=== PATIENT | female | born 1945 | race Caucasian/White ===

== ENCOUNTER → 2016-05-27 07:44 | Outpatient (CLI) | payer MEDICARE ==
[2015-06-12 08:00] VITALS: BMI 24.1
[~2016-05-27 07:44] MED LIST: BENICAR40 MG PO; HYDROCODONE-APA1 TAB PO; NORVASC10 MG PO; TOPROL XL100 MG PO
== END | disposition home or self-care (01) ==
LOC: D.NM 05-25 09:30 → D.US 07:44 → D.NM 09:00
DX: R93.2 Abnormal findings on diagnostic imaging of liver and biliary tract (principal); R10.10 Upper abdominal pain, unspecified

== ENCOUNTER → 2016-06-03 10:24 | Outpatient (CLI) | payer MEDICARE ==
[2015-06-12 08:00] VITALS: BMI 24.1
[2016-06-03 11:25] LABS: BASOPHILS 0.2 % (0.0-2.0); EOSINOPHILS 2.2 % (0-7); HEMATOCRIT 41.4 % (36.0-48.0); HEMOGLOBIN 13.8 g/dL (12-16); IMMATURE GRANULOCYTES 0.2 % (0-5); MCH 34.7 pg (26.0-34.0); MCHC 33.3 g/dL (31.0-37.0); MEAN PLATELET VOLUME 10.5 fL (7.4-10.4); MONOCYTES 11.2 % (2-11); NEUTROPHILS 59.2 % (40-80); PLATELET COUNT 157 10x3/uL (130-400); RBC 3.98 10x6/uL (4.00-5.40); RDW 13.6 % (11.5-14.5); WBC 9.2 10x3/uL (4.8-10.8)
[2016-06-03 11:44] LABS: ALBUMIN 3.2 g/dL (3.4-5.0); ANION GAP 11.1 mmol/L (8-16); BILIRUBIN - TOTAL 1.19 mg/dL (0.2-1.3); CALCIUM 8.8 mg/dL (8.5-10.1); CARBON DIOXIDE 26.8 mmol/L (21.0-32.0); POTASSIUM - SERUM 3.9 mmol/L (3.5-5.1); PROTEIN - SERUM 7.9 g/dL (6.4-8.2)
== END | disposition home or self-care (01) ==
LOC: D.LAB 10:24
PROVIDERS: Surgery
DX: R10.9 Unspecified abdominal pain (principal); R79.89 Other specified abnormal findings of blood chemistry; R11.2 Nausea with vomiting, unspecified; R93.2 Abnormal findings on diagnostic imaging of liver and biliary tract; R93.3 Abnormal findings on diagnostic imaging of other parts of digestive tract

== ENCOUNTER → 2016-06-22 11:24 | Outpatient (CLI) | payer MEDICARE ==
[2015-06-12 08:00] VITALS: BMI 24.1
[2016-06-23 12:17] LABS: FOLATE (FOLIC ACID) - SERUM 5.7 ng/mL (>3.0)
== END | disposition home or self-care (01) ==
LOC: D.LAB 11:24
PROVIDERS: Internal Medicine Gastroenterology
DX: R63.4 Abnormal weight loss (principal)

== ENCOUNTER 2016-07-14 07:40 | Day surgery (SDC) | payer MEDICARE ==
[~2016-07-14] VITALS: Ht 165.1 cm; Wt 63.0 kg
--- NOTE | ~2016-07-14 | OP ---
PATIENT NAME: ASHLEY SARABIA MEDICAL RECORD: [id number] :45 LOCATION:D.BEE ADMISSION DATE: SURGEON: QUINTEN ELLIS MD DATE OF OPERATION: 07/14/2016 PREOPERATIVE DIAGNOSES: 1. Biliary dyskinesia. 2. Hypertension. 3. Coronary artery disease. POSTOPERATIVE DIAGNOSES: 1. Biliary dyskinesia. 2. Hypertension. 3. Coronary artery disease. 4. Liver cirrhosis. PROCEDURE: 1. Laparoscopic cholecystectomy. 2. Liver biopsy. SURGEON: Quinten Ellis MD REPORT OF PROCEDURE: The patient's abdomen was prepped and draped in sterile fashion. A cutdown was made on the superior aspect of the umbilicus, 0 Vicryls were placed on the fascia bilaterally and the fascia was incised with 15-blade. I then bluntly entered the peritoneal cavity and placed a 12-mm Shay port. Under direct visualization, a 5 mm trocar was placed in the epigastrium and 2 more 5-mm trocars were placed in the right subcostal region. The liver was noted to have a significant amount of cirrhotic changes to it. It was very firm with a cobblestone appearance and was mildly enlarged. The gallbladder had some inflammatory attachments to the surrounding tissues including the patient's small bowel. Careful dissection was performed of the small bowel off of the gallbladder, dissected down near the cystic duct. It was difficult to make out a lot of the tissues because there was so much redundancy and scar tissue, so I did a dome-down approach of the gallbladder, taking in off of the liver bed and eventually dissecting it free until we only could see the cystic artery and cystic duct. These were clipped proximally and distally and ligated in standard fashion. The liver bed was treated with electrocautery and then was treated with Beth t. We took a liver biopsies from the right lobe of the liver using a Jerson-Cut liver biopsy device. The specimens were sent off for permanent. Any bleeding from these biopsy sites was treated with electrocautery and discontinued. We irrigated out the abdomen and assured there was no sign of any bleeding or bile leakage. At this point, the ports and insufflation were then removed and the gallbladder was taken out through the umbilicus. The umbilical fascia was closed with interrupted 0 Vicryls times 3. The wounds were irrigated out with normal saline and infused with 10 mL of 0.25% Marcaine with epinephrine. The skin incisions were all closed with subcutaneous 5-0 Monocryl and dressed appropriately. COMPLICATIONS: None. CONDITION: Stable. ANESTHESIA: General endotracheal and local. OPERATIVE REPORT [id number] ASHLEY SARABIA BLOOD LOSS: 30 mL. TRANSINT:[id number] Voice Confirmation ID: [id number] DOCUMENT ID: [id number] QUINTEN ELLIS MD CC: JAYSON DUMONT MD and GAVIN WALLER MD [id number] DICTATION DATE: 07/14/16 132 MANAGER CLINICAL PHARMACY: 07/14/162149 [facility] [place] 07/14/16 [place] [address] [place] [address]
[~2016-07-14 07:40] MED LIST changes: +ARICEPT5 MG PO; +COZAAR100 MG PO; +METOPROLOL TAR100 M1 PO; -TOPROL XL100 MG PO; +ZOFRAN8 MG PO
[2016-07-14 08:34] LABS: BASOPHILS 0.6 % (0-2); EOSINOPHILS 3.8 % (0-7); HEMATOCRIT 39.6 % (36.0-48.0); HEMOGLOBIN 13.2 g/dL (12-16); IMMATURE GRANULOCYTES 0.1 % (0-5); LYMPHOCYTES 35.3 % (15-50); MCH 35.9 pg (26.0-34.0); MCHC 33.3 g/dL (31.0-37.0); MCV 107.6 fL (80.0-100.0); MEAN PLATELET VOLUME 9.5 fL (7.4-10.4); MONOCYTES 11.8 % (2-11); NEUTROPHILS 48.4 % (40-80); PLATELET COUNT 134 10x3/uL (130-400); RBC 3.68 10x6/uL (4.00-5.40); RDW 15.3 % (11.5-14.5); WBC 7.1 10x3/uL (4.8-10.8)
[2016-07-14 08:49] LABS: ANION GAP 10.8 mmol/L (8-16); CALCIUM 9.1 mg/dL (8.5-10.1); CARBON DIOXIDE 26.5 mmol/L (21.0-32.0); CREATININE - SERUM 1.2 mg/dL (0.6-1.3); POTASSIUM - SERUM 4.3 mmol/L (3.5-5.1)
[2016-07-14 08:51] VITALS: BP 129/59; Ht 165.1 cm; Wt 63.0 kg
[2016-07-14] MEDS ORDERED: HYDROCODONE-IB1 EAC3 PO (13:15)
[2016-07-14 15:41] LABS: INR 1.53 (0.85-1.17); PROTIME 18.4 SECONDS (11.6-15.0)
[2016-07-14 15:42] LABS: APTT 59.6 SECONDS (22.8-39.4)
== END 2016-07-14 16:00 | disposition home or self-care (01) ==
LOC: D.OPS 07:40
PROVIDERS: Surgery
DX: K82.8 Other specified diseases of gallbladder (principal); I10 Essential (primary) hypertension; Z95.1 Presence of aortocoronary bypass graft; F17.200 Nicotine dependence, unspecified, uncomplicated; Z01.812 Encounter for preprocedural laboratory examination

== ENCOUNTER 2018-03-20 15:13 | Inpatient (IN) | payer MEDICARE ==
[~2018-03-20] VITALS: Ht 165.1 cm; Wt 63.5 kg
--- NOTE | ~2018-03-20 | HEMODYNAMI ---
PATIENT:DEZ SARABIA MEDICAL RECORD: [id number] : 45 LOCATION:[place] D.2227 ADMISSION DATE: 03/20/18 Generatedon:03/26/201813:03 Patient name: DEZ SARABIA Patient #: [id number] SSN: : 1945 Date of study: 03/26/2018 Page: Of Hemodynamic Procedure Report Patient Data Patient Demographics Procedure consent was obtained First Name: DEZ Gender: Female Last Name: NO : 1945 Patient #: [id number] Age: 72 year(s) Race: Unknown Additional ID: [id number] Contact details Address: [address] [place] [address] [place] [place] [facility] Zip code: [address] Admission Admission Data Admission Date: 03/20/2018 Admission Time: 17:10 Room #: D.2227 Procedure Procedure Types Cath Procedure Diagnostic Procedure JACOB Procedure Description Procedure Date Procedure Date: 03/26/2018 Procedure Start Time: 12:45 Procedure End Time: 12:51 Procedure Staff Name Function Laith Robison MD Performing Physician Adina Gaming RT Monitor Dk Helm RT Scrub David Platt RN Nurse Teresita Riley Project Associate Curry Mayorga Jr, CRNA Additional personnel Procedure Data Cath Procedure Fluoroscopy Diagnostic fluoroscopy Total fluoroscopy Time: 0 time: 0 min min Diagnostic fluoroscopy Total fluoroscopy dose: 0 dose: 0 mGy mGy Contrast Material Contrast Material Type Amount (ml) Isovue 300 0 Estimated blood loss: 0 ml Procedure Complications No complications Procedure Medications Medication Administration Route Dosage Oxygen etCO2 Nasal cannula 4 l/min Refer to Anesthesia Notes for Sedation Medications Hemodynamics Rest Heart Rate: 99 (bpm) Snapshots Pre Cath Intra NCS Post Cath Vital Signs Time Heart Resp SPO2 etCO2 NIBP Rhythm Pain Sedation Rate (ipm) (%) (mmHg) (mmHg) Status Level (bpm) 12:42:22 97 18 97 0 111/53(78) NSR 0 (11) 10(A) , No pain 12:46:48 102 19 97 0 123/34(77) NSR 0 (11) 9(A) , No pain 12:51:02 100 14 94 0 82/37(65) NSR 0 (11) 9(A) , No pain 12:56:09 91 15 95 0 88/41(63) NSR 0 (11) 9(A) , No pain 13:02:49 102 15 98 0 96/62(66) NSR 0 (11) 10(A) , No pain Medications Time Medication Route Dose Verified Delivered Reason Notes Effective ness by by 12:40:13 Oxygen etCO2 4 Laith Hernandez used for Nasal l/min Enriqueta Platt RN procedure cannula 12:43:18 Refer to Laith Hernandez Anesthesia Enriqueta Platt RN Notes for Sedation Medications Procedure Log Time Note 12:15:27 Adina Gaming RT(R) sent for patient. Start room use. 12:25:33 Time tracking: Regular hours (M-F 7:00 - 5:00) 12:25:36 Plan of Care:Hemodynamics will remain stable., Cardiac rhythm will remain stable., Comfort level will be maintained., Respiratory function will remain adequate., Patient/ family verbilizes understanding of procedure., Procedure tolerated without complication., Recovers from procedure without complications.. 12:26:03 Curry Mayorga Jr, CRNA present and monitoring patient for TIVA. 12:26:05 Teresita Riley Oracle Programmer Analyst present for JACOB. 12:37:08 Patient received from Med/Surg to CCL 3 Alert and oriented. Tansferred to table in Supine position. 12:38:24 Warm blankets applied, and sissy hugger turned on for patient comfort. 12:38:24 Correct patient and procedure confirmed by team. 12:38:26 Signed procedure consent form obtained from patient. 12:38:27 ECG and BP/O2 sat monitors applied to patient. 12:40:13 Oxygen 4 l/min etCO2 Nasal cannula was administered by David Platt RN; used for procedure; 12:41:11 Vital chart was started 12:41:27 Baseline sample Acquired. 12:41:34 Full Disclosure recording started 12:41:39 H&P Date Dictated: 03/26/2018 Within 30 days and on chart.. 12:41:41 Pre-procedure instructions explained to patient. 12:41:41 Pre-op teaching completed and patient verbalized understanding. 12:41:43 Family in waiting room. 12:41:44 Patient NPO since Midnight. 12:41:47 Is the patient allergic to Iodine/contrast media? No. 12:41:48 Was the patient premedicated? No 12:42:04 Is patient on blood thinner?No 12:42:05 Patient diabetic? No. 12:42:08 Previous problem with sedation/anesthesia? No ? 12:42:16 Snore? No 12:42:17 Sleep apnea? No 12:42:18 Deviated septum? No 12:42:20 Opens mouth fully? Yes 12:42:21 Sticks out tongue? Yes 12:42:23 Airway obstruction? No ? 12:42:27 Dentures? Yes out 12:42:32 Pre procedure: right dorsailis pedis pulse 2+ Normal; easily identifiable; not easily obliterated 12:42:34 Pre procedure: left dorsailis pedis pulse 2+ Normal; easily identifiable; not easily obliterated 12:42:36 Patient pain scale 0/10 ?. 12:42:42 IV patent on arrival in left forearm with 0.9% NaCl at [facility]. 12:42:45 Lab results completed and on chart. 12:42:48 Alarms reviewed by R. N. 12:42:49 Sharps counted by scrub and verified by R.N. 12:43:18 Refer to Anesthesia Notes for Sedation Medications was administered by David Platt RN; ; 12:44:34 Physician arrived 12:44:34 --------ALL STOP TIME OUT------ 12:44:35 Final Timeout: patient, procedure, and site verified with staff and physician. All members of the team are in agreement. 12:44:46 Physical assessment completed. ASA score P 2 - A patient with mild systemic disease as per Laith Robison MD. 12:44:51 Sedation plan: TIVA Medication:Propofol 12:45:14 Procedure started. 12:45:17 JACOB started. 12:48:52 JACOB completed. 12:49:09 Procedure ended.(Physican Out) 12:49:18 Fluoroscopy time 00.00 minutes. 12:49:22 Fluoroscopy dose: 0 mGy 12:49:22 Flurop Dose total: 0 12:50:27 Contrast amount:Isovue 300 0ml. 12:50:28 Sharps counted by scrub and verified by R.N. 12:50:30 Insertion/operative site no bleeding no hematoma. 12:50:34 Post procedure rhythm: unchanged. 12:50:37 Estimated blood loss: 0 ml 12:50:39 Post procedure instruction explained to patient.Patient verbalizes understanding. 12:50:39 Patient needs reinforcement of post procedure teaching. 12:50:45 Procedure and supply charges have been captured, reviewed, submitted and are correct. 12:50:49 Procedure Complication : No complications 12:50:51 Vital chart was stopped 12:50:51 See physician's report for complete and final results. 12:50:56 Report given to Med/Surg. 12:50:58 Patient transfered to Med/Surg with Stretcher. 12:51:00 Procedure ended. 12:51:00 Full Disclosure recording stopped 12:51:03 End room use (Document Last) 12:59:30 Vital chart was started 13:03:55 Vital chart was stopped Signature Audit [place] Stage Time Signature Unsigned Intra-Procedure 03/26/2018 Dk Helm RT([place]) 1:03:53 PM Signatures Monitor : Adina GAMINO Signature : Date : Time : [facility] [address] [place] [address]
[~2018-03-20 15:13] MED LIST changes: +HYDROCODONE-IB1 EAC3 PO
[2018-03-20 17:21] VITALS: BP 135/56; BMI 23.3
[2018-03-20] MEDS ORDERED: ACETAMINOPHEN500 M1 PO (18:30)
[2018-03-20] MEDS ORDERED: ZITHROMAX TRI-500 MG PO (18:31)
[2018-03-20] MEDS ORDERED: HYDROCODON-ACE1 EAC7 PO (18:32)
[2018-03-20] MEDS ORDERED: NAFCILLIN 2 GM/N2 G1 IV (18:34)
[2018-03-20] MEDS ORDERED: IPRAT-ALBUT 0.5-3 ML UPD (18:35)
[2018-03-20] MEDS ORDERED: LOVENOX40 MG/0.4 SC (18:36)
[2018-03-20] MEDS ORDERED: LIPITOR10 MG PO (18:36)
[2018-03-20 21:50] VITALS: BP 144/59
[2018-03-21 05:26] VITALS: BP 136/58
[2018-03-21 08:47] VITALS: BP 120/53
--- NOTE | 2018-03-21 08:56 | MORECARE ---
CASE MANAGEMENT DISCHARGE SUMMARY PATIENT: DEZ SARABIA UNIT: [id number] ADM DATE: 03/20/18 AGE: 72 : 45 SEX: F ROOM/BED: D.2227 AUTHOR: GAMALIEL RIVERA PHYSICIAN: REFERRING PHYSICIAN: MAYUR PALACIO MD DATE OF SERVICE: 03/21/18 Discharge Plan Patient Name: DEZ SARABIA Facility: [facility]:[place] : 1945 Planned Disposition: Home Anticipated Discharge Date: 03/24/18 Discharge Date: Expected LOS: 4 Initial Reviewer: [email or web address] Initial Review Date: 03/21/2018 Generated: 03/21/18 9:56 am DCPIA - Discharge Planning Initial Assessment Updated by [email or web address]: Miranda Carpenter on 03/21/18 8:56 am * Is the patient Alert and Oriented? Yes * How many steps to enter\exit or inside your home? * PCP DR. GONZALEZ * Pharmacy [facility] [place] * Preadmission Environment Home with Family * ADLs Partial Dependent * Partial ADLs (Assistance needed) Medication Management * Equipment None * List name and contact numbers for known caregivers / representatives who currently or will assist patient after discharge: GAVIN (SPOUSE) [phone] * Verbal permission to speak to the caregivers and representatives has been obtained from the patient. Yes * Community resources currently utilized None * Additional services required to return to the preadmission environment? Yes * Can the patient safely return to the preadmission environment? Yes * Has this patient been hospitalized within the prior 30 days at any hospital? No Patient Name: DEZ SARABIA Page [phone] at 0856 All edits/amendments must be made on the electronic document DICTATION DATE: 03/21/18854 WILDLAND FIRE FIGHTER: RAVINDER 03/21/18854 RPT#: [id number] DC DATE: STATUS: ADM IN [address] [place] [address] END OF REPORT
--- NOTE | 2018-03-21 09:05 | MORECARE ---
CASE MANAGEMENT DISCHARGE SUMMARY PATIENT: DEZ SARABIA UNIT: [id number] ADM DATE: 03/20/18 AGE: 72 : 45 SEX: F ROOM/BED: D.2227 AUTHOR: MIGUEL,DOC PHYSICIAN: REFERRING PHYSICIAN: MAYUR PALACIO MD DATE OF SERVICE: 03/21/18 Discharge Plan Patient Name: DEZ SARABIA Facility: [facility]:[place] : 1945 Planned Disposition: Home Anticipated Discharge Date: 03/24/18 Discharge Date: Expected LOS: 4 Initial Reviewer: [email or web address] Initial Review Date: 03/21/2018 Generated: 03/21/18 10:05 am Comments DCP- Discharge Planning Updated by [email or web address]: Miranda Carpenter on 03/21/18 7:[address] Patient Name: DEZ SARABIA Admission Status: Urgent Accout number: [id number] Admission Date: 03-20-2018 : 1945 Admission Diagnosis: Attending: MAYUR PALACIO Current LOS: 1 Anticipated DC Date: 03-24-2018 Planned Disposition: Home Primary Insurance: [employer] CHOICE PPO MCR ADVANT Discharge Planning Comments: CM MET WITH PATIENT AND SPOUSE (GAVIN) REGARDING D/C NEEDS AND PLANS. PATIENT STATED HER SPOUSE WILL DRIVE HER HOME AT DISCHARGE. THERE ARE NO STEPS OR STAIRS AT PATIENTS HOME. PATIENT STATED SHE IS INDEPENDENT WITH HER CARE AND HAS NO DME AT HOME. PATIENTS PCP IS DR. GONZALEZ AND PHARMACY [facility] [place]. [place] REFUSED HOME HEALTH AT THIS TIME. CM WILL CONTINUE TO FOLLOW PATIENT WITH D/C NEEDS AND PLANS. PCP DR. GONZALEZ [facility] GAVIN (SPOUSE) [phone] Jacquard Plate Maker: Miranda Carpenter DCPIA - Discharge Planning Initial Assessment Updated by [email or web address]: Miranda Carpenter on 03/21/18 8:56 am * Is the patient Alert and Oriented? Yes * How many steps to enter\exit or inside your home? * PCP DR. GONZALEZ * Pharmacy [facility] [place] * Preadmission Environment Home with Family * ADLs Partial Dependent * Partial ADLs (Assistance needed) Medication Management * Equipment None * List name and contact numbers for known caregivers / representatives who currently or will assist patient after discharge: GAVIN (SPOUSE) [phone] * Verbal permission to speak to the caregivers and representatives has been obtained from the patient. Yes * Community resources currently utilized None * Additional services required to return to the preadmission environment? Yes * Can the patient safely return to the preadmission environment? Yes * Has this patient been hospitalized within the prior 30 days at any hospital? No Last DP export: 03/21/18 7:56 a Patient Name: DEZ SARABIA Page [phone] at 0905 All edits/amendments must be made on the electronic document DICTATION DATE: 03/21/18903 PAYROLL ACCOUNTING MANAGER: RAVINDER 03/21/18903 RPT#: [id number] DC DATE: STATUS: ADM IN [facility] [address] [place] [address] END OF REPORT
[2018-03-21 10:10] VITALS: BMI 23.2
[2018-03-21 12:19] VITALS: BP 118/46
[2018-03-21 18:40] LABS: APPEARANCE CLEAR (CLEAR); BILIRUBIN NEGATIVE (NEGATIVE); COLOR YELLOW (YELLOW); GLUCOSE NEGATIVE (NEGATIVE); KETONE NEGATIVE (NEGATIVE); NITRITE NEGATIVE (NEGATIVE); PROTEIN NEGATIVE (NEGATIVE); UROBILINOGEN NORMAL (NORMAL)
[2018-03-21 18:42] LABS: BACTERIA MODERATE /hpf (NONE SEEN); EPITHELIAL CELLS 0-5 /hpf (0-5); RED CELLS - URINE 0-5 /hpf (0-5)
[2018-03-21 20:08] VITALS: BP 110/54
[2018-03-22 00:31] VITALS: BP 111/80
[2018-03-22 04:34] VITALS: BP 110/80
[2018-03-22 06:09] LABS: ALBUMIN 1.5 g/dL (3.4-5.0); BILIRUBIN - DIRECT 1.29 mg/dL (0.00-0.30); BILIRUBIN - INDIRECT 1.33 mg/dL (0.00-1.00); BILIRUBIN - TOTAL 2.62 mg/dL (0.2-1.3); CALCIUM 7.7 mg/dL (8.5-10.1); CARBON DIOXIDE 20.4 mmol/L (21.0-32.0); CREATININE - SERUM 2.3 mg/dL (0.6-1.3); POTASSIUM - SERUM 3.4 mmol/L (3.5-5.1); PROTEIN - SERUM 5.2 g/dL (6.4-8.2)
[2018-03-22 06:10] LABS: BASOPHILS 0.5 % (0-2); EOSINOPHILS 0.3 % (0-7); HEMATOCRIT 23.3 % (36.0-48.0); HEMOGLOBIN 7.7 g/dL (12-16); IMMATURE GRANULOCYTES 1.5 % (0-5); LYMPHOCYTES 24.7 % (15-50); MCH 32.2 pg (26.0-34.0); MCV 97.5 fL (80.0-100.0); MONOCYTES 14.2 % (2-11); NEUTROPHILS 58.8 % (40-80); RBC 2.39 10x6/uL (4.00-5.40); RDW 17.5 % (11.5-14.5); WBC 6.6 10x3/uL (4.8-10.8)
[2018-03-22 06:35] LABS: PLATELET COUNT 168 10x3/uL (130-400)
[2018-03-22 10:55] VITALS: BP 138/53
[2018-03-22 12:09] VITALS: BP 99/42
[2018-03-22 20:20] VITALS: BP 124/51
[2018-03-22 23:37] VITALS: BP 113/48
[2018-03-23 05:53] VITALS: BP 126/54
[2018-03-23 08:20] LABS: BASOPHILS 0.4 % (0-2); EOSINOPHILS 1.4 % (0-7); HEMATOCRIT 25.8 % (36.0-48.0); HEMOGLOBIN 8.6 g/dL (12-16); IMMATURE GRANULOCYTES 1.3 % (0-5); LYMPHOCYTES 22.3 % (15-50); MCH 31.9 pg (26.0-34.0); MCHC 33.3 g/dL (31.0-37.0); MCV 95.6 fL (80.0-100.0); MEAN PLATELET VOLUME 8.8 fL (7.4-10.4); MONOCYTES 11.2 % (2-11); NEUTROPHILS 63.4 % (40-80); PLATELET COUNT 169 10x3/uL (130-400); RDW 17.6 % (11.5-14.5); WBC 7.1 10x3/uL (4.8-10.8)
[2018-03-23 08:28] LABS: ANION GAP 12.5 mmol/L (8-16); CALCIUM 7.5 mg/dL (8.5-10.1); CARBON DIOXIDE 21.8 mmol/L (21.0-32.0); CREATININE - SERUM 2.9 mg/dL (0.6-1.3); POTASSIUM - SERUM 3.3 mmol/L (3.5-5.1)
[2018-03-23 09:20] LABS: HEPATITIS C ANTIBODY 10.7 S/CO RAT (0.0-0.9)
[2018-03-23 09:37] VITALS: BP 122/50
[2018-03-23 13:37] VITALS: BP 109/68
[2018-03-23 14:26] LABS: ANA REFLEX - DIRECT Negative (Negative)
[2018-03-23 17:45] VITALS: BP 126/48
[2018-03-23 20:00] VITALS: BP 117/46
[2018-03-24 00:41] VITALS: BP 133/46
[2018-03-24 04:30] LABS: BASOPHILS 0.5 % (0-2); HEMATOCRIT 24.9 % (36.0-48.0); HEMOGLOBIN 8.3 g/dL (12-16); IMMATURE GRANULOCYTES 1.9 % (0-5); LYMPHOCYTES 19.7 % (15-50); MCH 31.3 pg (26.0-34.0); MCHC 33.3 g/dL (31.0-37.0); MEAN PLATELET VOLUME 8.4 fL (7.4-10.4); MONOCYTES 9.3 % (2-11); NEUTROPHILS 67.6 % (40-80); PLATELET COUNT 158 10x3/uL (130-400); RBC 2.65 10x6/uL (4.00-5.40); RDW 17.9 % (11.5-14.5)
[2018-03-24 04:55] LABS: ANION GAP 14.1 mmol/L (8-16); CALCIUM 7.3 mg/dL (8.5-10.1); CARBON DIOXIDE 18.8 mmol/L (21.0-32.0); MAGNESIUM - SERUM 1.7 mg/dL (1.8-2.4)
[2018-03-24 04:57] LABS: POTASSIUM - SERUM 2.9 mmol/L (3.5-5.1)
[2018-03-24 05:25] VITALS: BP 134/61
[2018-03-24 08:57] VITALS: BP 132/49
[2018-03-24 12:55] VITALS: BP 120/53
[2018-03-24 20:00] VITALS: BP 153/68
[2018-03-25] VITALS: BP 151/59
[2018-03-25 03:00] VITALS: BP 137/69
[2018-03-25 05:04] LABS: BASOPHILS 0.6 % (0-2); EOSINOPHILS 0.6 % (0-7); HEMATOCRIT 25.7 % (36.0-48.0); HEMOGLOBIN 8.5 g/dL (12-16); IMMATURE GRANULOCYTES 1.1 % (0-5); LYMPHOCYTES 19.2 % (15-50); MCH 32.2 pg (26.0-34.0); MCHC 33.1 g/dL (31.0-37.0); MEAN PLATELET VOLUME 8.5 fL (7.4-10.4); MONOCYTES 8.6 % (2-11); NEUTROPHILS 69.9 % (40-80); PLATELET COUNT 179 10x3/uL (130-400); RBC 2.64 10x6/uL (4.00-5.40); RDW 19.2 % (11.5-14.5); WBC 7.9 10x3/uL (4.8-10.8)
[2018-03-25 05:07] LABS: MCV 97.3 fL (80.0-100.0)
[2018-03-25 05:12] LABS: ANION GAP 14.4 mmol/L (8-16); CALCIUM 7.3 mg/dL (8.5-10.1); CARBON DIOXIDE 17.9 mmol/L (21.0-32.0); CREATININE - SERUM 2.9 mg/dL (0.6-1.3)
[2018-03-25 05:13] LABS: POTASSIUM - SERUM 4.3 mmol/L (3.5-5.1)
[2018-03-25 05:21] LABS: INR 1.78 (0.85-1.17); PROTIME 20.1 SECONDS (11.6-15.0)
[2018-03-25 05:22] LABS: APTT 62.9 SECONDS (22.8-39.4)
[2018-03-25 09:21] VITALS: BP 106/52
[2018-03-25 16:56] VITALS: BP 110/61
[2018-03-25 18:06] LABS: MITOCHONDRIAL ANTIBODY 5.6 Units (0.0-20.0)
[2018-03-25 19:08] LABS: SMOOTH MUSCLE ABS (ACTIN) 15 Units (0-19)
[2018-03-25 20:00] VITALS: BP 116/54
[2018-03-26 00:02] VITALS: BP 103/49
[2018-03-26 03:00] VITALS: BP 110/58
[2018-03-26 04:58] LABS: BASOPHILS 0.6 % (0-2); EOSINOPHILS 0.4 % (0-7); HEMATOCRIT 25.4 % (36.0-48.0); HEMOGLOBIN 8.3 g/dL (12-16); IMMATURE GRANULOCYTES 0.7 % (0-5); LYMPHOCYTES 21.2 % (15-50); MCH 32.3 pg (26.0-34.0); MCHC 32.7 g/dL (31.0-37.0); MCV 98.8 fL (80.0-100.0); MEAN PLATELET VOLUME 8.9 fL (7.4-10.4); MONOCYTES 8.2 % (2-11); NEUTROPHILS 68.9 % (40-80); PLATELET COUNT 150 10x3/uL (130-400); RBC 2.57 10x6/uL (4.00-5.40); RDW 19.8 % (11.5-14.5)
[2018-03-26 05:11] LABS: ALBUMIN 1.3 g/dL (3.4-5.0); ANION GAP 14.1 mmol/L (8-16); BILIRUBIN - TOTAL 2.18 mg/dL (0.2-1.3); CALCIUM 7.5 mg/dL (8.5-10.1); CARBON DIOXIDE 18.3 mmol/L (21.0-32.0); CREATININE - SERUM 3.3 mg/dL (0.6-1.3); POTASSIUM - SERUM 4.4 mmol/L (3.5-5.1); PROTEIN - SERUM 5.2 g/dL (6.4-8.2)
[2018-03-26 05:22] LABS: MAGNESIUM - SERUM 2.1 mg/dL (1.8-2.4)
[2018-03-26 08:25] VITALS: BP 125/48
[2018-03-26 10:12] LABS: HCVGENO - HEP C QUANT HCV Not Detected IU/mL (())
[2018-03-26 12:26] VITALS: BP 111/45
--- NOTE | 2018-03-26 15:26 | EC ---
PATIENT:DEZ SARABIA DATE OF SERVICE: 03/20/18 SEX: F MEDICAL RECORD: [id number] DATE OF : 45 LOCATION:D.MS Urias222 AGE OF PATIENT: 72 ADMISSION DATE: 03/20/18 REFERRING PHYSICIAN: INTERPRETING PHYSICIAN: BROOKS LANIER MD ECHOCARDIOGRAM REPORT ECHO CHARGES 4 ECHO COMPLETE Date: 03/21/18 CLINICAL DIAGNOSIS: R/O VEG ECHOCARDIOGRAPHIC MEASUREMENTS (adult normal given) AC root (d.<3.7cm) 2.8 cm LV Septum d (<1.2 cm> 1.1 cm Valve Excursion 1.8 cm LV Septum (systole) 1.2 cm Left Atria (s.<4.0cm> 3.8 cm LVPW d(<1.2cm) 0.6 cm RV (d.<2.3cm) 2.8 cm LVPW (sytole) 0.7 cm LV diastole(<5.6CM) 5.0 cm MV E-F(>70mm/sec) cm LV systole 3.8 cm LVOT Diameter 1.5 cm MV exc.(>10mm) cm Est.ejection fraction (50-75%) % DOPPLER: LVIT cm/sec A 109 cm/sec E 100 cm/sec LA cm/sec RVSP 31.8 mmHg LVOT 145 cm/sec AOP1/2T m/s Asc. Ao 201 cm/sec RVOT 133 cm/sec RA cm/sec PA 141 cm/sec AV Gradient Peak 16.1 mmHg AV Mean 7.9 mmHg AV Area 1.6 cm MV Gradient Peak 9.8 mmHg MV Mean 5.4 mmHg MV Area cm COMMENTS: Scenic Artist: Shannen REIS Patcher Wood Welder: 3 Dr. Wharton TAPE# PACS Pericardial Effusion N DATE OF SERVICE: Adequate 2D, color flow, spectral Doppler, and M-Mode. No LVH. LV internal dimensions are normal. Wall motion is normal. EF is greater than or equal to 55%. Aortic valve is calcified mildly with mild restriction of leaflet motion. Peak gradient of 60 mmHg, just putting this in very mild range. Left atrium is normal. Mitral valve shows no prolapse. Trivial MR. Right-sided chamber is grossly normal. Trivial TR. No evidence of vegetation in all 4 cardiac valves. TRANSINT:[id number] Voice Confirmation ID: [id number] DOCUMENT ID: [id number] ECHOCARDIOGRAM REPORT [id number] DEZ SARABIA,BROOKS Lehman MD at 1526 CC: [id number] DICTATION DATE: 03/22/18 1531 RECEPTION SPECIALIST: 03/22/18 2139 ADM IN [place] [id number] [place] [id number]
[2018-03-26 16:10] LABS: LIVER-KIDNEY MICROSOMAL AB 1.4 Units (0.0-20.0)
[2018-03-26 17:23] VITALS: BP 124/52
[2018-03-26 20:31] VITALS: BP 103/43
[2018-03-27 04:47] VITALS: BP 126/54
[2018-03-27 05:30] LABS: BASOPHILS 1.1 % (0-2); EOSINOPHILS 0.2 % (0-7); IMMATURE GRANULOCYTES 0.4 % (0-5); LYMPHOCYTES 17.4 % (15-50); MCH 32.1 pg (26.0-34.0); MCHC 33.3 g/dL (31.0-37.0); MONOCYTES 7.2 % (2-11); NEUTROPHILS 73.7 % (40-80); PLATELET COUNT 177 10x3/uL (130-400); RDW 20.3 % (11.5-14.5); WBC 8.2 10x3/uL (4.8-10.8)
[2018-03-27 05:59] LABS: MCV 96.4 fL (80.0-100.0)
[2018-03-27 06:09] LABS: ALBUMIN 1.4 g/dL (3.4-5.0); ANION GAP 18.1 mmol/L (8-16); BILIRUBIN - TOTAL 2.13 mg/dL (0.2-1.3); CARBON DIOXIDE 15.7 mmol/L (21.0-32.0); CREATININE - SERUM 3.9 mg/dL (0.6-1.3); POTASSIUM - SERUM 3.8 mmol/L (3.5-5.1); PROTEIN - SERUM 5.6 g/dL (6.4-8.2)
[2018-03-27 06:11] LABS: URIC ACID 7.7 mg/dL (2.6-7.2)
[2018-03-27 08:28] VITALS: BP 144/71
--- NOTE | 2018-03-27 10:20 | CN ---
PATIENT NAME:DEZ SARABIA MEDICAL RECORD: [id number] : [birth year] LOCATION:D.MS Urias2227 ADMIT DATE: 03/20/18 ACCOUNT: [id number] CONSULTING PHYSICIAN: SHAR MEZA MD REFERRING PHYSICIAN: MAYUR PALACIO MD DATE OF CONSULTATION: 03/24/2018 DIAGNOSES: 1. Methicillin-susceptible Staphylococcus aureus bacteremia. 2. Multilobar pneumonia. 3. Aortic valve disorder. 4. Coronary artery disease. 5. Hypertension. 6. Dementia. 7. Renal insufficiency. HISTORY OF PRESENT ILLNESS: Mrs. Sarabia presents with mental status changes and overall not feeling well, found to have multilobar pneumonia and MSSA bacteremia. She was seen by infectious disease. A transesophageal echo has been requested. She does have aortic valve disorder on transthoracic echo, this was a calcified valve; however, aortic valve endocarditis could not be ruled out. PHYSICAL EXAMINATION: GENERAL APPEARANCE: Well-nourished, well-developed, appears stated age. Level of distress, comfortable. PSYCHIATRIC: Mental status, alert, normal affect. Orientation, oriented to time, place and person. EYES: Lids and conjunctiva, noninjected. No discharge, no pallor. ENT: Lips, teeth, gums, normal dentition. Oropharynx, no cyanosis, no pallor. NECK: Carotid arteries, bilateral normal upstroke, no bruits, no thrills. JUGULAR VEINS: No jugular venous pressure or distention. CERVICAL LYMPH NODES: Nontender, nonenlarged. THYROID: Not enlarged. Nontender. No nodules. LUNGS: Respiratory effort, unlabored. CHEST: Normal curvature. No thoracic deformity. No chest wall tenderness. Percussion, resonant. Auscultation, clear. No wheezes, no rales, no rhonchi. CARDIOVASCULAR: Precordial exam, nondisplaced. No heaves or pericardial thrills. Rate and rhythm, regular. Heart sounds, normal S1, normal S2. No S3, no gallop, no rub. Systolic murmur, not heard. Diastolic murmur, not heard. EXTREMITIES: No cyanosis, no edema. Peripheral pulses, full and equal in all extremities, except as noted. No bruits appreciated. ABDOMEN: Soft, nondistended. Normal aorta. No bruit. Nontender. No masses. Liver, nontender, no hepatomegaly. Spleen, nontender, no splenomegaly. MUSCULOSKELETAL: No joint tenderness. No joint swelling. No erythema. NEUROLOGICAL: Normal gait, normal strength, normal tone. SKIN: Warm and dry. OVERALL IMPRESSION: Methicillin-susceptible Staphylococcus aureus bacteremia with aortic valve disorder. We will proceed with transesophageal echo on Monday. TRANSINT:[id number] Voice Confirmation ID: [id number] DOCUMENT ID: [id number] CONSULT REPORT [id number] DEZ SARABIA, SHAR MORILLO at 1020 CC: [id number] DICTATION DATE: 03/24/18 1213 ZOOGLER: 03/24/18 1234 ADM IN [place] [id number] [place] [id number]
--- NOTE | 2018-03-27 10:23 | TEE ---
PATIENT:DZE SARABIA MEDICAL RECORD: [id number] LOCATION:D.MS Urias222 AGE OF PATIENT: 72 ADMISSION DATE: 03/20/18 SEX: F REFERRING PHYSICIAN: INTERPRETING PHYSICIAN: SHAR ROBISON MD TRANSESOPHAGEAL ECHOCARDIOGRAM Date: 03/26/18 JACOB CHARGE Y INDICATIONS: PREMEDICATIONS: PATIENT'S RESPONSE PROCEDURE DOPPLER MEASUREMENTS: LVIT LA PA 141 RA LVOT 145 RVOT 133 Asc. Ao 201 AV Gradient Peak 16.1 AV Mean 7.9 AV Area 1.6 MV Gradient Peak 9.8 MV Mean 5.4 MV Area INTERPRETATION: Doppler: 2-D: COLOR FLOW DOPPLER NORMAL SALINE STUDY: MISCELLANOUS: DIAGNOSIS: PLAN: Aviation Consultant:1 Dr. Robison Feed Crusher Operator: Shannen REIS COMMENTS: DATE OF SERVICE: 03/26/2018 PROCEDURE: Transesophageal echo. INDICATION: Evaluate for endocarditis. PROCEDURE IN DETAIL: After informed consent was obtained and after a detailed description of the risks, benefits as well as alternative therapies, the patient elected to proceed with transesophageal echo. IV conscious sedation was TRANSESOPHAGEAL ECHOCARDIOGRAM REPORT [id number] DEZ SARABIA performed for anesthesia. Continuous heart rate, O2 saturation, blood pressure monitoring, all undertaken, all of which remains stable. FINDINGS: 1. Left ventricular chamber size is within normal limits. Left ventricular systolic function is normal. Overall ejection fraction estimated at 60%. 2. Left atrium, right atrium, and right ventricle chamber sizes are within normal limits. 3. Valvular structures have normal structure and motion. There is no evidence of vegetative endocarditis. 4. Doppler interrogation reveals no significant valvular insufficiency or stenosis. 5. No evidence of pericardial effusion or left ventricular thrombus. TRANSINT:[id number] Voice Confirmation ID: [id number] DOCUMENT ID: [id number] at 1023 CC: [id number] DICTATION DATE: 03/26/18 1254 HVAC SALES ENGINEER: 03/26/18 2353 ADM IN [place] [id number] [place] [id number]
[2018-03-27 11:55] VITALS: BP 117/48
[2018-03-27 16:02] LABS: CREATININE - URINE 165.2 mg/dL (30-125)
[2018-03-27 16:05] LABS: APPEARANCE CLEAR (CLEAR); COLOR YELLOW (YELLOW)
[2018-03-27 16:06] LABS: BILIRUBIN NEGATIVE (NEGATIVE); GLUCOSE NEGATIVE (NEGATIVE); KETONE NEGATIVE (NEGATIVE); NITRITE POSITIVE (NEGATIVE); PROTEIN NEGATIVE (NEGATIVE); UROBILINOGEN NORMAL (NORMAL)
[2018-03-27 16:08] LABS: BACTERIA MODERATE /hpf (NONE SEEN)
[2018-03-27 16:58] VITALS: BP 142/50
[2018-03-27 20:00] VITALS: BP 122/51
[2018-03-28] VITALS: BP 136/70
[2018-03-28 04:00] VITALS: BP 121/49
[2018-03-28 05:43] LABS: BASOPHILS 0.9 % (0-2); EOSINOPHILS 0.5 % (0-7); HEMATOCRIT 25.1 % (36.0-48.0); HEMOGLOBIN 8.3 g/dL (12-16); IMMATURE GRANULOCYTES 0.3 % (0-5); LYMPHOCYTES 18.3 % (15-50); MCH 32.2 pg (26.0-34.0); MCHC 33.1 g/dL (31.0-37.0); MCV 97.3 fL (80.0-100.0); MEAN PLATELET VOLUME 8.7 fL (7.4-10.4); MONOCYTES 10.3 % (2-11); NEUTROPHILS 69.7 % (40-80); PLATELET COUNT 153 10x3/uL (130-400); RBC 2.58 10x6/uL (4.00-5.40)
[2018-03-28 06:46] LABS: ALBUMIN 1.3 g/dL (3.4-5.0); ANION GAP 16.3 mmol/L (8-16); BILIRUBIN - TOTAL 2.49 mg/dL (0.2-1.3); CALCIUM 7.6 mg/dL (8.5-10.1); CARBON DIOXIDE 16.9 mmol/L (21.0-32.0); CREATININE - SERUM 3.9 mg/dL (0.6-1.3); PROTEIN - SERUM 5.6 g/dL (6.4-8.2)
[2018-03-28 07:13] LABS: POTASSIUM - SERUM 3.2 mmol/L (3.5-5.1)
[2018-03-28 09:16] VITALS: BP 132/65
--- NOTE | 2018-03-28 09:51 | MORECARE ---
CASE MANAGEMENT DISCHARGE SUMMARY PATIENT: DEZ SARABIA UNIT: [id number] ADM DATE: 03/20/18 AGE: 72 : 45 SEX: F ROOM/BED: D.2227 AUTHOR: MIGUEL,DOC PHYSICIAN: REFERRING PHYSICIAN: MAYUR PALACIO MD DATE OF SERVICE: 03/28/18 Discharge Plan Patient Name: DEZ SARABIA Facility: [facility]:[place] : 1945 Planned Disposition: Home Anticipated Discharge Date: 03/24/18 Discharge Date: Expected LOS: 4 Initial Reviewer: [email or web address] Initial Review Date: 03/21/2018 Generated: 03/28/18 10:51 am DCP- Discharge Planning Updated by [email or web address]: Miranda Carpenter on 03/21/18 7:[address] Patient Name: DEZ SARABIA Admission Status: Urgent Accout number: [id number] Admission Date: 03-20-2018 : 1945 Admission Diagnosis: Attending: MAYUR PALACIO Current LOS: 1 Anticipated DC Date: 03-24-2018 Planned Disposition: Home Primary Insurance: [employer] CHOICE PPO MCR ADVANT Discharge Planning Comments: CM MET WITH PATIENT AND SPOUSE (GAVIN) REGARDING D/C NEEDS AND PLANS. PATIENT STATED HER SPOUSE WILL DRIVE HER HOME AT DISCHARGE. THERE ARE NO STEPS OR STAIRS AT PATIENTS HOME. PATIENT STATED SHE IS INDEPENDENT WITH HER CARE AND HAS NO DME AT HOME. PATIENTS PCP IS DR. GONZALEZ AND [facility] [place]. CM WILL CONTINUE TO FOLLOW PATIENT WITH D/C NEEDS AND PLANS. PCP DR. GONZALEZ [facility] GAVIN (SPOUSE) [phone] Street Department Dispatcher: Miranda Carpenter DCPIA - Discharge Planning Initial Assessment Updated by [email or web address]: Miranda Carpenter on 03/21/18 8:56 am * Is the patient Alert and Oriented? Yes * How many steps to enter\exit or inside your home? * PCP DR. GONZALEZ * Pharmacy [facility] [place] * Preadmission Environment Home with Family * ADLs Partial Dependent * Partial ADLs (Assistance needed) Medication Management * Equipment None * List name and contact numbers for known caregivers / representatives who currently or will assist patient after discharge: GAVIN (SPOUSE) [phone] * Verbal permission to speak to the caregivers and representatives has been obtained from the patient. Yes * Community resources currently utilized None * Additional services required to return to the preadmission environment? Yes * Can the patient safely return to the preadmission environment? Yes * Has this patient been hospitalized within the prior 30 days at any hospital? No External Providers External Provider: [facility] Next Contact Date: Service Request Date: Service Type: Resolution: Reviewer: Comments: Last DP export: 03/21/18 8:05 a Patient Name: DEZ SARABIA Page [phone] at 0951 All edits/amendments must be made on the electronic document DICTATION DATE: 03/28/18949 MD DO RESIDENT URGENT CARE: RAVINDER 03/28/18949 RPT#: [id number] DC DATE: STATUS: ADM IN [facility] [address] [place] [address] END OF REPORT
--- NOTE | 2018-03-28 10:05 | MORECARE ---
CASE MANAGEMENT DISCHARGE SUMMARY PATIENT: DEZ SARABIA UNIT: [id number] ADM DATE: 03/20/18 AGE: 72 : 45 SEX: F ROOM/BED: D.2227 AUTHOR: MIGUEL,DOC PHYSICIAN: REFERRING PHYSICIAN: MAYUR PALACIO MD DATE OF SERVICE: 03/28/18 Discharge Plan Patient Name: DEZ SARABIA Facility: [facility]:[place] : 1945 Planned Disposition: Home Anticipated Discharge Date: 03/24/18 Discharge Date: Expected LOS: 4 Initial Reviewer: [email or web address] Initial Review Date: 03/21/2018 Generated: 03/28/18 11:05 am DCP- Discharge Planning Updated by [email or web address]: Miranda Carpenter on 03/21/18 7:[address] Patient Name: DEZ SARABIA Admission Status: Urgent Accout number: [id number] Admission Date: 03-20-2018 : 1945 Admission Diagnosis: Attending: MAYUR PALACIO Current LOS: 1 Anticipated DC Date: 03-24-2018 Planned Disposition: Home Primary Insurance: [employer] CHOICE PPO MCR ADVANT Discharge Planning Comments: CM MET WITH PATIENT AND SPOUSE (GAVIN) REGARDING D/C NEEDS AND PLANS. PATIENT STATED HER SPOUSE WILL DRIVE HER HOME AT DISCHARGE. THERE ARE NO STEPS OR STAIRS AT PATIENTS HOME. PATIENT STATED SHE IS INDEPENDENT WITH HER CARE AND HAS NO DME AT HOME. PATIENTS PCP IS DR. GONZALEZ AND [facility] [place]. CM WILL CONTINUE TO FOLLOW PATIENT WITH D/C NEEDS AND PLANS. PCP DR. GONZALEZ [facility] (SPOUSE) [phone] Net Application Architect: Miranda Carpenter DCPIA - Discharge Planning Initial Assessment Updated by [email or web address]: Miranda Carpenter on 03/21/18 8:56 am * Is the patient Alert and Oriented? Yes * How many steps to enter\exit or inside your home? * PCP DR. GONZALEZ * Pharmacy [facility] [place] * Preadmission Environment Home with Family * ADLs Partial Dependent * Partial ADLs (Assistance needed) Medication Management * Equipment None * List name and contact numbers for known caregivers / representatives who currently or will assist patient after discharge: GAVIN (SPOUSE) [phone] * Verbal permission to speak to the caregivers and representatives has been obtained from the patient. Yes * Community resources currently utilized None * Additional services required to return to the preadmission environment? Yes * Can the patient safely return to the preadmission environment? Yes * Has this patient been hospitalized within the prior 30 days at any hospital? No External Providers External Provider: OTHER-OTHER Next Contact Date: Service Request Date: Service Type: Resolution: Reviewer: Comments: Last DP export: 03/28/18 8:51 a Patient Name: DEZ SARABIA Page 95793 at 1005 All edits/amendments must be made on the electronic document DICTATION DATE: 03/28/18 100 HOME CARE RN: RAVINDER 03/28/18 100 RPT#: [id number] DC DATE: STATUS: ADM IN [facility] [address] [place] [address] END OF REPORT
--- NOTE | 2018-03-28 10:32 | MORECARE ---
CASE MANAGEMENT DISCHARGE SUMMARY PATIENT: DEZ SARABIA UNIT: [id number] ADM DATE: 03/20/18 AGE: 72 : 45 SEX: F ROOM/BED: D.2227 AUTHOR: MIGUELDOC PHYSICIAN: REFERRING PHYSICIAN: MAYUR PALACIO MD DATE OF SERVICE: 03/28/18 Discharge Plan Patient Name: DEZ SARABIA Facility: [facility]:[place] : 1945 Planned Disposition: Home Anticipated Discharge Date: 03/24/18 Discharge Date: Expected LOS: 4 Initial Reviewer: [email or web address] Initial Review Date: 03/21/2018 Generated: 03/28/18 11:32 am Comments DCP- Discharge Planning Updated by [email or web address]: Gertrudis Sams on 03/28/18 9:[address] Patient Name: DEZ SARABIA Admission Status: Urgent Accout number: [id number] Admission Date: 03-20-2018 : 1945 Admission Diagnosis:PNEUMONIA, UNSPECIFIED ORGANISM Attending: MAYUR PALACIO Current LOS: 8 Anticipated DC Date: 03-24-2018 Planned Disposition: Home Primary Insurance: [employer] CHOICE PPO MCR ADVANT Discharge Planning Comments: CM met with patient and to discuss discharge planning. I have discussed rehab vs SNF and home with home health. Patient states she is wanting to go home if possible. states he needs to go back to work and would prefer she was in a skilled facility while getting her antibiotics. Patient states she may be agreeable to that. TIM for [facility] signed. I called and spoke to Tayrn there and referral sent. [facility] if going home, I did send a referral to [facility] for IV antibiotics for copay angel. PT and OT asked to reassess. CM will continue to follow and assist with discharge planning/needs. Breakfast Host: Gertrudis Sams DCP- Discharge Planning Updated by [email or web address]: Miranda Carpenter on 03/21/18 7:[address] Patient Name: DEZ SARABIA Admission Status: Urgent Accout number: [id number] Admission Date: 03-20-2018 : 1945 Admission Diagnosis: Attending: MAYUR PALACIO Current LOS: 1 Anticipated DC Date: 03-24-2018 Planned Disposition: Home Primary Insurance: [employer] CHOICE PPO MCR ADVANT Discharge Planning Comments: CM MET WITH PATIENT AND SPOUSE (GAVIN) REGARDING D/C NEEDS AND PLANS. PATIENT STATED HER SPOUSE WILL DRIVE HER HOME AT DISCHARGE. THERE ARE NO STEPS OR STAIRS AT PATIENTS HOME. PATIENT STATED SHE IS INDEPENDENT WITH HER CARE AND HAS NO DME AT HOME. PATIENTS PCP IS DR. GONZALEZ AND [facility] [place]. [place] REFUSED HOME HEALTH AT THIS TIME. CM WILL CONTINUE TO FOLLOW PATIENT WITH D/C NEEDS AND PLANS. PCP DR. GONZALEZ [facility] GAV[place] (SPOUSE) [phone] Breakfast Host: Miranda Carpenter DCPIA - Discharge Planning Initial Assessment Updated by [email or web address]: Miranda Carpenter on 03/21/18 8:56 am * Is the patient Alert and Oriented? Yes * How many steps to enter\exit or inside your home? * PCP DR. GONZALEZ * Pharmacy [facility] [place] * Preadmission Environment Home with Family * ADLs Partial Dependent * Partial ADLs (Assistance needed) Medication Management * Equipment None * List name and contact numbers for known caregivers / representatives who currently or will assist patient after discharge: GAVIN (SPOUSE) [phone] * Verbal permission to speak to the caregivers and representatives has been obtained from the patient. Yes * Community resources currently utilized None * Additional services required to return to the preadmission environment? Yes * Can the patient safely return to the preadmission environment? Yes * Has this patient been hospitalized within the prior 30 days at any hospital? No Last DP export: 03/28/18 9:05 a Patient Name: DEZ SARABIA Page 97879 at 1032 All edits/amendments must be made on the electronic document DICTATION DATE: 03/28/18 1032 NECKTIES PAINTER: RAVINDER 03/28/18 1032 RPT#: [id number] DC DATE: STATUS: ADM IN [facility] [address] [place] [address] END OF REPORT
[2018-03-28 12:00] VITALS: BP 140/59
[2018-03-29 04:57] VITALS: BP 125/55
[2018-03-29 06:20] LABS: BASOPHILS 0.9 % (0-2); EOSINOPHILS 0.3 % (0-7); HEMATOCRIT 24.5 % (36.0-48.0); IMMATURE GRANULOCYTES 0.1 % (0-5); LYMPHOCYTES 17.8 % (15-50); MCH 31.7 pg (26.0-34.0); MCHC 32.7 g/dL (31.0-37.0); MCV 97.2 fL (80.0-100.0); MONOCYTES 8.4 % (2-11); NEUTROPHILS 72.5 % (40-80); PLATELET COUNT 152 10x3/uL (130-400); RBC 2.52 10x6/uL (4.00-5.40); RDW 21.5 % (11.5-14.5); WBC 6.7 10x3/uL (4.8-10.8)
[2018-03-29 06:42] LABS: ALBUMIN 1.1 g/dL (3.4-5.0); ANION GAP 15.7 mmol/L (8-16); BILIRUBIN - TOTAL 2.79 mg/dL (0.2-1.3); CALCIUM 7.2 mg/dL (8.5-10.1); CARBON DIOXIDE 18.8 mmol/L (21.0-32.0); CREATININE - SERUM 4.2 mg/dL (0.6-1.3); POTASSIUM - SERUM 3.5 mmol/L (3.5-5.1); PROTEIN - SERUM 5.3 g/dL (6.4-8.2)
[2018-03-29 08:51] VITALS: BP 110/54
--- NOTE | 2018-03-29 12:04 | MORECARE ---
CASE MANAGEMENT DISCHARGE SUMMARY PATIENT: DEZ SARABIA UNIT: [id number] ADM DATE: 03/20/18 AGE: 72 : 45 SEX: F ROOM/BED: D.2227 AUTHOR: MIGUELDOC PHYSICIAN: REFERRING PHYSICIAN: MAYUR PALACIO MD DATE OF SERVICE: 03/29/18 Discharge Plan Patient Name: DEZ SARABIA Facility: [facility]:[place] : 1945 Planned Disposition: Home Anticipated Discharge Date: 03/24/18 Discharge Date: Expected LOS: 4 Initial Reviewer: [email or web address] Initial Review Date: 03/21/2018 Generated: 03/29/18 1:04 pm Comments DCP- Discharge Planning Updated by [email or web address]: Gertrudis Sams on 03/28/18 9:[address] Patient Name: DEZ SARABIA Admission Status: Urgent Accout number: [id number] Admission Date: 03-20-2018 : 1945 Admission Diagnosis:PNEUMONIA, UNSPECIFIED ORGANISM Attending: MAYUR PALACIO Current LOS: 8 Anticipated DC Date: 03-24-2018 Planned Disposition: Home Primary Insurance: [employer] CHOICE PPO MCR ADVANT Discharge Planning Comments: CM met with patient and to discuss discharge planning. I have discussed rehab vs SNF and home with home health. Patient states she is wanting to go home if possible. states he needs to go back to work and would prefer she was in a skilled facility while getting her antibiotics. Patient states she may be agreeable to that. TIM for [facility] signed. I called and spoke to Taryn there and referral sent. TIM [facility] signed if going home, I did send a referral to [facility] for IV antibiotics for copay angel. PT and OT asked to reassess. CM will continue to follow and assist with discharge planning/needs. Shaper Operator: Gertrudis Sams DCP- Discharge Planning Updated by [email or web address]: Miranda Carpenter on 03/21/18 7:[address] Patient Name: DEZ SARABIA Admission Status: Urgent Accout number: [id number] Admission Date: 03-20-2018 : 1945 Admission Diagnosis: Attending: MAYUR PALACIO Current LOS: 1 Anticipated DC Date: 03-24-2018 Planned Disposition: Home Primary Insurance: [employer] CHOICE PPO MCR ADVANT Discharge Planning Comments: CM MET WITH PATIENT AND SPOUSE (GAVIN) REGARDING D/C NEEDS AND PLANS. PATIENT STATED HER SPOUSE WILL DRIVE HER HOME AT DISCHARGE. THERE ARE NO STEPS OR STAIRS AT PATIENTS HOME. PATIENT STATED SHE IS INDEPENDENT WITH HER CARE AND HAS NO DME AT HOME. PATIENTS PCP IS DR. GONZALEZ AND PHARMACY IS [facility] IN [place]. [place] REFUSED HOME HEALTH AT THIS TIME. CM WILL CONTINUE TO FOLLOW PATIENT WITH D/C NEEDS AND PLANS. PCP DR. GONZALEZ [facility] GAVIN (SPOUSE) [phone] Shaper Operator: Miranda Carpenter DCPIA - Discharge Planning Initial Assessment Updated by [email or web address]: Miranda Carpenter on 03/21/18 8:56 am * Is the patient Alert and Oriented? Yes * How many steps to enter\exit or inside your home? * PCP DR. GONZALEZ * Pharmacy [facility] [place] * Preadmission Environment Home with Family * ADLs Partial Dependent * Partial ADLs (Assistance needed) Medication Management * Equipment None * List name and contact numbers for known caregivers / representatives who currently or will assist patient after discharge: GAVIN (SPOUSE) [phone] * Verbal permission to speak to the caregivers and representatives has been obtained from the patient. Yes * Community resources currently utilized None * Additional services required to return to the preadmission environment? Yes * Can the patient safely return to the preadmission environment? Yes * Has this patient been hospitalized within the prior 30 days at any hospital? No Last DP export: 03/28/18 9:32 a Patient Name: DEZ SARABIA Page 88598 at 1204 All edits/amendments must be made on the electronic document DICTATION DATE: 03/29/18 1204 [place] DRIER OPERATOR: RAVINDER 03/29/18 1204 RPT#: [id number] DC DATE: STATUS: ADM IN [facility] [address] [place] [address] END OF REPORT
[2018-03-29 13:03] VITALS: BP 119/50
[2018-03-29 16:30] VITALS: BP 109/45
[2018-03-29 20:31] VITALS: BP 105/52
[2018-03-30 04:41] LABS: BASOPHILS 0.9 % (0-2); EOSINOPHILS 0.3 % (0-7); HEMATOCRIT 23.4 % (36.0-48.0); HEMOGLOBIN 7.9 g/dL (12-16); LYMPHOCYTES 15.8 % (15-50); MCH 32.5 pg (26.0-34.0); MCHC 33.8 g/dL (31.0-37.0); MCV 96.3 fL (80.0-100.0); MEAN PLATELET VOLUME 8.8 fL (7.4-10.4); MONOCYTES 8.3 % (2-11); NEUTROPHILS 74.7 % (40-80); PLATELET COUNT 142 10x3/uL (130-400); RBC 2.43 10x6/uL (4.00-5.40); RDW 21.4 % (11.5-14.5); WBC 6.8 10x3/uL (4.8-10.8)
[2018-03-30 04:49] LABS: INR 2.12 (0.85-1.17); PROTIME 23.1 SECONDS (11.6-15.0)
[2018-03-30 04:54] LABS: ANION GAP 14.2 mmol/L (8-16); BILIRUBIN - TOTAL 3.05 mg/dL (0.2-1.3); CREATININE - SERUM 4.6 mg/dL (0.6-1.3); POTASSIUM - SERUM 3.2 mmol/L (3.5-5.1)
[2018-03-30 04:56] LABS: CALCIUM 6.7 mg/dL (8.5-10.1)
[2018-03-30 05:04] VITALS: BP 105/41
[2018-03-30 09:46] VITALS: BP 124/56
[2018-03-30 18:12] VITALS: BP 159/59
[2018-03-30 19:00] VITALS: BP 112/42
[2018-03-30 23:03] VITALS: Ht 165.1 cm; Wt 63.5 kg
[2018-03-31] VITALS: BP 121/53
[2018-03-31 03:00] VITALS: BP 128/50
[2018-03-31 05:28] LABS: BASOPHILS 1.9 % (0-2); EOSINOPHILS 0 % (0-7); HEMATOCRIT 22.5 % (36.0-48.0); HEMOGLOBIN 7.6 g/dL (12-16); IMMATURE GRANULOCYTES 0.2 % (0-5); LYMPHOCYTES 10.6 % (15-50); MCH 32.3 pg (26.0-34.0); MCHC 33.8 g/dL (31.0-37.0); MCV 95.7 fL (80.0-100.0); MONOCYTES 17.9 % (2-11); NEUTROPHILS 69.4 % (40-80); PLATELET COUNT 149 10x3/uL (130-400); RBC 2.35 10x6/uL (4.00-5.40); RDW 21.9 % (11.5-14.5)
[2018-03-31 05:38] LABS: WBC 4.7 10x3/uL (4.8-10.8)
[2018-03-31 06:08] LABS: ALBUMIN 1.1 g/dL (3.4-5.0); ANION GAP 16.2 mmol/L (8-16); BILIRUBIN - TOTAL 1.76 mg/dL (0.2-1.3); CARBON DIOXIDE 17.9 mmol/L (21.0-32.0); CREATININE - SERUM 4.7 mg/dL (0.6-1.3); MAGNESIUM - SERUM 1.5 mg/dL (1.8-2.4); POTASSIUM - SERUM 3.1 mmol/L (3.5-5.1); PROTEIN - SERUM 5.5 g/dL (6.4-8.2)
[2018-03-31 06:10] LABS: CALCIUM 6.9 mg/dL (8.5-10.1)
[2018-03-31 08:00] VITALS: BP 131/54
[2018-03-31 12:00] VITALS: BP 131/57
[2018-03-31 16:00] VITALS: BP 134/57
[2018-03-31 19:00] VITALS: BP 107/43
--- NOTE | 2018-03-31 21:57 | OP ---
PATIENT NAME: DEZ SARABIA MEDICAL RECORD: [id number] :[birth year] LOCATION:D.MS [id number] ADMISSION DATE:03/20/18 SURGEON: DYLLAN ROWE MD DATE OF OPERATION: 03/31/2018 PREOPERATIVE DIAGNOSES: 1. Hepatorenal syndrome. 2. Acute renal failure requiring hemodialysis. POSTOPERATIVE DIAGNOSES: 1. Hepatorenal syndrome. 2. Acute renal failure requiring hemodialysis. PROCEDURE: Insertion of right internal jugular Trialysis catheter (non-tunnelled, non-cuffed triple lumen hemodialysis catheter). SURGEON: Dyllan Rowe MD BEE BREEDER: None. BLOOD LOSS: Minimal. ANESTHESIA: Local. COMPLICATIONS: None. The entire procedure was performed in the presence of a female nurse. The procedure was performed in the patient's bed. The risks, possible complications, and alternatives to the procedure were explained to the patient and her . They elected to proceed. The patient was positioned in the Trendelenburg position. Utilizing the ultrasound, I identified a large compressible right internal jugular vein. This was marked. The right neck was sterilely prepped and draped. A local anesthetic was used to infiltrate the skin and subcutaneous tissues of the base of the right neck. Right internal jugular vein was percutaneously accessed in an antegrade fashion. A guidewire passed easily. A small skin estelle was accomplished. A vessel dilator was used to dilate a subcutaneous tract. A short Trialysis catheter was inserted to the hub. It was sutured in place times 3. All lumens flushed easily and aspirated dark, nonpulsatile blood. A stat portable chest x-ray is pending. A sterile dressing was applied. TRANSINT:[id number] Voice Confirmation ID: [id number] DOCUMENT ID: [id number] DYLLAN ROWE MD at 2157 CC: [id number] DICTATION DATE: 03/31/18 0023 BEEF PLUCK TRIMMER: 03/31/18 0247 ADM IN [place] [id number] [place] [id number]
[2018-04-01] VITALS: BP 110/51
[2018-04-01 03:00] VITALS: BP 132/55
[2018-04-01 07:27] LABS: INR 2.19 (0.85-1.17); PROTIME 23.7 SECONDS (11.6-15.0)
[2018-04-01 07:46] LABS: ALBUMIN 1.1 g/dL (3.4-5.0); BILIRUBIN - TOTAL 1.54 mg/dL (0.2-1.3); CALCIUM 7.1 mg/dL (8.5-10.1); MAGNESIUM - SERUM 1.4 mg/dL (1.8-2.4); PROTEIN - SERUM 5.8 g/dL (6.4-8.2)
[2018-04-01 07:49] LABS: CREATININE - SERUM 2.4 mg/dL (0.6-1.3)
[2018-04-01 07:50] LABS: ANION GAP 12.7 mmol/L (8-16); CARBON DIOXIDE 24.1 mmol/L (21.0-32.0); POTASSIUM - SERUM 2.8 mmol/L (3.5-5.1)
[2018-04-01 08:48] VITALS: BP 186/61
[2018-04-01 12:00] VITALS: BP 119/65
[2018-04-01 16:00] VITALS: BP 142/61
[2018-04-01 19:00] VITALS: BP 149/69
[2018-04-02] VITALS: BP 140/61
[2018-04-02 00:43] LABS: CARBON DIOXIDE 26.1 mmol/L (21.0-32.0); CREATININE - SERUM 2.3 mg/dL (0.6-1.3)
[2018-04-02 00:44] LABS: ANION GAP 8.8 mmol/L (8-16); CALCIUM 6.9 mg/dL (8.5-10.1); POTASSIUM - SERUM 2.9 mmol/L (3.5-5.1)
[2018-04-02 03:00] VITALS: BP 165/76
[2018-04-02 07:40] LABS: BILIRUBIN - TOTAL 2.35 mg/dL (0.2-1.3); CALCIUM 7.4 mg/dL (8.5-10.1); CARBON DIOXIDE 22.5 mmol/L (21.0-32.0); CREATININE - SERUM 2.5 mg/dL (0.6-1.3); MAGNESIUM - SERUM 1.3 mg/dL (1.8-2.4); PROTEIN - SERUM 6.9 g/dL (6.4-8.2)
[2018-04-02 07:52] LABS: ALBUMIN 2.2 g/dL (3.4-5.0); ANION GAP 16.4 mmol/L (8-16); POTASSIUM - SERUM 3.9 mmol/L (3.5-5.1)
[2018-04-02 09:00] VITALS: BP 138/84
--- NOTE | 2018-04-02 11:49 | MORECARE ---
CASE MANAGEMENT DISCHARGE SUMMARY PATIENT: DEZ SARABIA UNIT: [id number] ADM DATE: 03/20/18 AGE: 72 : 45 SEX: F ROOM/BED: D.2227 AUTHOR: MIGUEL,DOC PHYSICIAN: REFERRING PHYSICIAN: MAYUR PALACIO MD DATE OF SERVICE: 04/02/18 Discharge Plan Patient Name: DEZ SARABIA Facility: [facility]:[place] : 1945 Planned Disposition: Home Anticipated Discharge Date: 03/24/18 Discharge Date: Expected LOS: 4 Initial Reviewer: [email or web address] Initial Review Date: 03/21/2018 Generated: 04/02/18 12:49 pm Comments DCP- Discharge Planning Updated by [email or web address]: Gertrudis Sams on 04/02/18 10:[address] Met with patient's daughter and and discussed hospice options per their request. They request [facility] for in house. I called and spoke to Yuki at [facility] and asked for consult MARILEE, patient is critical. Clinical faxed. CM will continue to follow and assist with discharge planning/needs. DCP- Discharge Planning Updated by [email or web address]: Gertrudis Latrell on 03/28/18 9:[address] Patient Name: DEZ SARABIA Admission Status: Urgent Accout number: [id number] Admission Date: 03-20-2018 : 1945 Admission Diagnosis:PNEUMONIA, UNSPECIFIED ORGANISM Attending: MAYUR PALACIO Current LOS: 8 Anticipated DC Date: 03-24-2018 Planned Disposition: Home Primary Insurance: [employer] CHOICE PPO MCR ADVANT Discharge Planning Comments: CM met with patient and to discuss discharge planning. I have discussed rehab vs SNF and home with home health. Patient states she is wanting to go home if possible. states he needs to go back to work and would prefer she was in a skilled facility while getting her antibiotics. Patient states she may be agreeable to that. TIM for [facility] signed. I called and spoke to Taryn there and referral sent. [facility] if going home, I did send a referral to [facility] for IV antibiotics for copay angel. PT and OT asked to reassess. CM will continue to follow and assist with discharge planning/needs. Java Android Developer: Gertrudis Sams DCP- Discharge Planning Updated by [email or web address]: Miranda Carpenter on 03/21/18 7:[address] Patient Name: DEZ SARABIA Admission Status: Urgent Accout number: [id number] Admission Date: 03-20-2018 : 1945 Admission Diagnosis: Attending: MAYUR PALACIO Current LOS: 1 Anticipated DC Date: 03-24-2018 Planned Disposition: Home Primary Insurance: [employer] CHOICE PPO MCR ADVANT Discharge Planning Comments: CM MET WITH PATIENT AND SPOUSE (GAVIN) REGARDING D/C NEEDS AND PLANS. PATIENT STATED HER SPOUSE WILL DRIVE HER HOME AT DISCHARGE. THERE ARE NO STEPS OR STAIRS AT PATIENTS HOME. PATIENT STATED SHE IS INDEPENDENT WITH HER CARE AND HAS NO DME AT HOME. PATIENTS PCP IS DR. GONZALEZ AND [facility]ACY [facility] [place]. [place] REFUSED HOME HEALTH AT THIS TIME. CM WILL CONTINUE TO FOLLOW PATIENT WITH D/C NEEDS AND PLANS. PCP DR. GON[facility]ALEZ [facility] G[place] (SPOUSE) [phone] Java Android Developer: Miranda Carpenter [facility] - Discharge Planning Initial Assessment Updated by [email or web address]: Miranda Carpenter on 03/21/18 8:56 am * Is the patient Alert and Oriented? Yes * How many steps to enter\exit or inside your home? * PCP DR. GONZALEZ * Pharmacy [facility] [place] * Preadmission Environment Home with Family * ADLs Partial Dependent * Partial ADLs (Assistance needed) Medication Management * Equipment None * List name and contact numbers for known caregivers / representatives who currently or will assist patient after discharge: GAVIN (SPOUSE) [phone] * Verbal permission to speak to the caregivers and representatives has been obtained from the patient. Yes * Community resources currently utilized None * Additional services required to return to the preadmission environment? Yes * Can the patient safely return to the preadmission environment? Yes * Has this patient been hospitalized within the prior 30 days at any hospital? No External Providers [facility](provides inp Next Contact Date: Service Request Date: Service Type: Resolution: Reviewer: Comments: Last DP export: 03/29/18 11:04 a Patient Name: DEZ SARABIA Page 89632 at 1149 All edits/amendments must be made on the electronic document DICTATION DATE: 04/02/188 DOCK OPERATIONS SUPERVISOR: RAVINDER 04/02/18 1148 RPT#: [id number] DC DATE: STATUS: ADM IN [facility] [address] [place] [address] END OF REPORT
[2018-04-02 13:34] VITALS: BP 66/39
[2018-04-03 11:21] LABS: SPE - A/G RATIO 0.7 (0.7-1.7); SPE - ALBUMIN 2.4 g/dL (2.9-4.4); SPE - ALPHA-1 GLOBULIN 0.2 g/dL (0.0-0.4); SPE - ALPHA-2 GLOBULIN 0.3 g/dL (0.4-1.0); SPE - BETA GLOBULIN 0.7 g/dL (0.7-1.3); SPE - GAMMA GLOBULIN 2.2 g/dL (0.4-1.8); SPE - M-SPIKE Not Observed g/dL (Not Observed); SPE - TOTAL PROTEIN 5.8 g/dL (6.0-8.5)
--- NOTE | 2018-04-04 07:11 | MORECARE ---
CASE MANAGEMENT DISCHARGE SUMMARY PATIENT: DEZ SARABIA UNIT: [id number] ADM DATE: 03/20/18 AGE: 72 : 45 SEX: F ROOM/BED: D.2227 AUTHOR: MIGUEL,DOC PHYSICIAN: REFERRING PHYSICIAN: MAYUR PALACIO MD DATE OF SERVICE: 04/04/18 Discharge Plan Patient Name: DEZ SARABIA Facility: [facility]:[place] : 1945 Planned Disposition: Home Anticipated Discharge Date: 03/24/18 Discharge Date: 04/02/2018 Expected LOS: 4 Initial Reviewer: [email or web address] Initial Review Date: 03/21/2018 Generated: 04/04/18 8:11 am Comments DCP- Discharge Planning Updated by [email or web address]: Gertrudis Sams on 04/02/18 10:[address] Met with patient's daughter and and discussed hospice options per their request. They request [facility] for in house. I called and spoke to Yuki at [facility] and asked for consult MARILEE, patient is critical. Clinical faxed. CM will continue to follow and assist with discharge planning/needs. DCP- Discharge Planning Updated by [id number]: Gertrudis Sams on 03/28/18 9:[address] Patient Name: DEZ SARAIBA Admission Status: Urgent Accout number: [id number] Admission Date: 03-20-2018 : 1945 Admission Diagnosis:PNEUMONIA, UNSPECIFIED ORGANISM Attending: MAYUR PALACIO Current LOS: 8 Anticipated DC Date: 03-24-2018 Planned Disposition: Home Primary Insurance: [employer] CHOICE PPO MCR ADVANT Discharge Planning Comments: CM met with patient and to discuss discharge planning. I have discussed rehab vs SNF and home with home health. Patient states she is wanting to go home if possible. states he needs to go back to work and would prefer she was in a skilled facility while getting her antibiotics. Patient states she may be agreeable to that. TIM for [facility] signed. I called and spoke to Taryn there and referral sent. [facility] if going [facility], I did send a referral to [facility] for IV antibiotics for copay angel. PT and OT asked to reassess. CM will continue to follow and assist with discharge planning/needs. Machine Design Teacher: Gertrudis Sams DCP- Discharge Planning Updated by [email or web address]: Miranda Carpenter on 03/21/18 7:[address] Patient Name: DEZ SARABIA Admission Status: Urgent Accout number: [id number] Admission Date: 03-20-2018 : 1945 Admission Diagnosis: Attending: MAYUR PALACIO Current LOS: 1 Anticipated DC Date: 03-24-2018 Planned Disposition: Home Primary Insurance: [employer] CHOICE PPO MCR ADVANT Discharge Planning Comments: CM MET WITH PATIENT AND SPOUSE (GAVIN) REGARDING D/C NEEDS AND PLANS. PATIENT STATED HER SPOUSE WILL DRIVE HER HOME AT DISCHARGE. THERE ARE NO STEPS OR STAIRS AT PATIENTS HOME. PATIENT STATED SHE IS INDEPENDENT WITH HER CARE AND HAS NO DME AT HOME. PATIENTS PCP IS DR. GONZALEZ AND PHARMACY IS [facility] IN [place]. [place] REFUSED HOME HEALTH AT THIS TIME. CM WILL CONTINUE TO FOLLOW PATIENT WITH D/C NEEDS AND PLANS. [facility] DR[facility] (SPOUSE) [phone] Machine Design Teacher: Miranda Carpenter DCPIA - Discharge Planning Initial Assessment Updated by [email or web address]: Miranda Carpenter on 03/21/18 8:56 am * Is the patient Alert and Oriented? Yes * How many steps to enter\exit or inside your home? * PCP DR. GONZALEZ * Pharmacy [facility] [place] * Preadmission Environment Home with Family * ADLs Partial Dependent * Partial ADLs (Assistance needed) Medication Management * Equipment None * List name and contact numbers for known caregivers / representatives who currently or will assist patient after discharge: GAVIN (SPOUSE) [phone] * Verbal permission to speak to the caregivers and representatives has been obtained from the patient. Yes * Community resources currently utilized None * Additional services required to return to the preadmission environment? Yes * Can the patient safely return to the preadmission environment? Yes * Has this patient been hospitalized within the prior 30 days at any hospital? No Last DP export: 04/02/18 10:49 a Patient Name: DEZ SARABIA Page 15121 at 0711 All edits/amendments must be made on the electronic document DICTATION DATE: 04/04/18709 COPY MACHINE OPERATOR: RAVINDER 04/04/18709 RPT#: [id number] DC DATE:04/02/18 STATUS: DIS IN [facility] [address] [place] [address] END OF REPORT
== END 2018-04-02 16:23 | disposition hospice, inpatient (51) | DRG 871 ==
LOC: D.MS 15:13 → D.SDCHOLD 04-02 12:39 → D.MS 04-02 12:41
PROVIDERS: Family Medicine; Internal Medicine Gastroenterology; Internal Medicine Nephrology; ADMIT Internal Medicine Nephrology
PROC: 05HY33Z Insertion of Infusion Device into Upper Vein, Percutaneous Approach (ICD-10-PCS; principal; 2018-03-21)
PROC: 05HM33Z Insertion of Infusion Device into Right Internal Jugular Vein, Percutaneous Approach (ICD-10-PCS; 2018-03-31)
DX: A41.9 Sepsis, unspecified organism (principal); K76.7 Hepatorenal syndrome; J15.211 Pneumonia due to Methicillin susceptible Staphylococcus aureus; B17.10 Acute hepatitis C without hepatic coma; N17.9 Acute kidney failure, unspecified; I25.10 Atherosclerotic heart disease of native coronary artery without angina pectoris; I10 Essential (primary) hypertension; Z66 Do not resuscitate; K74.69 Other cirrhosis of liver; K52.9 Noninfective gastroenteritis and colitis, unspecified; B95.61 Methicillin susceptible Staphylococcus aureus infection as the cause of diseases classified elsewhere; G89.4 Chronic pain syndrome; I35.0 Nonrheumatic aortic (valve) stenosis; F03.90 Unspecified dementia, unspecified severity, without behavioral disturbance, psychotic disturbance, mood disturbance, and anxiety; D64.9 Anemia, unspecified; R00.0 Tachycardia, unspecified

== ENCOUNTER 2018-04-02 17:10 | Inpatient (IN) | payer OTHER ==
[2018-03-30 23:03] VITALS: BMI 23.2
[~2018-04-02 17:10] MED LIST changes: +ACETAMINOPHEN500 M1 PO; +HYDROCODON-ACE1 EAC7 PO; +IPRAT-ALBUT 0.5-3 ML UPD; +LIPITOR10 MG PO; +LOVENOX40 MG/0.4 SC; +NAFCILLIN 2 GM/N2 G1 IV; +ZITHROMAX TRI-500 MG PO
--- NOTE | 2018-04-02 18:44 | NUR ---
PT READMITTED HOSPICE CARE, PATIENT GAEL STOCKING RESP. 26 FAMILY AT BEDSIDE IV NOTED RIGHT IJ WITH NO SWELLING OR REDNESS NOTED. C/L WITHIN REACH AND SR'S UP X'S 2. FAMILY AT BEDSIDE.
--- NOTE | 2018-04-02 23:05 | NUR ---
CALLED TO ROOM BY FAMILY NO RESPIRATIONS OR PULSE, MULTIPLE FAMILY MEMBERS AT BEDSIDE, [facility] NOTIFIED CALL BACK RECIEVED FROM [facility] WILL BE HERE IN ABOUT 20 MIN FAMILY INFORMED
--- NOTE | 2018-04-04 07:15 | MORECARE ---
CASE MANAGEMENT DISCHARGE SUMMARY PATIENT: DEZ SARABIA UNIT: [id number] ADM DATE: 04/02/18 AGE: 72 : 45 SEX: F ROOM/BED: D.2227 AUTHOR: GAMALIEL RIVERA PHYSICIAN: REFERRING PHYSICIAN: KELLI DUNCAN MD DATE OF SERVICE: 04/04/18 Discharge Plan Patient Name: DEZ SARABIA Facility: [facility]:[place] : 1945 Planned Disposition: Anticipated Discharge Date: Discharge Date: 04/02/2018 Expected LOS: 0 Initial Reviewer: [email or web address] Initial Review Date: 04/04/2018 Generated: 04/04/18 8:14 am Patient Name: DEZ SARABIA Page 91034 at 0715 All edits/amendments must be made on the electronic document DICTATION DATE: 04/04/18713 FARM ADVISOR: RAVINDER 04/04/18713 RPT#: [id number] DC DATE:04/02/18 STATUS: DIS IN [facility] [address] [place] [address] END OF REPORT
== END 2018-04-02 23:05 | DRG 951 ==
LOC: D.MS 17:10
PROVIDERS: ADMIT Legal Medicine
DX: Z51.5 Encounter for palliative care (principal)